=== PATIENT | male | born 1945 | race Caucasian/White ===

== ENCOUNTER 2024-06-24 13:28 | Outpatient (CLI) | payer MEDICARE, SELFPAY ==
--- NOTE | 2024-06-24 14:51 | ECG_ITS ---
Test Date: 2024-06-24 15:06:50 Measurements Intervals [place] Rate: 85 P: 55 AR: 153 QRS: -10 QRSD: 88 T: 41 QT: 349 QTc: 416 Interpretive Statements SINUS RHYTHM CONSIDER ANTERIOR INFARCT, AGE INDETERMINATE PEAKED T WAVES- CONSIDER HYPERKALEMIA BASELINE ARTIFACT- I, II, III, AVR, AVL ,AVF, V1-V6 ABNORMAL ECG No previous ECG available for comparison Electronically Signed On 06-24-2024 16:40:49 CDT by Tomas Reynoso D.O.
[2024-06-24 15:25] LABS: Anion Gap 6 mmol/L (4-12); Blood Urea Nitrogen 37 mg/dL (9-20); Calcium 9.9 mg/dL (8.4-10.2); Carbon Dioxide 29 mmol/L (22-30); Chloride 100 mmol/L (98-107); Estimated Glomerular Filt Rate 32; Glucose 111 mg/dL (65-110); Potassium 4.7 mmol/L (3.4-5.0); Sodium 135 mmol/L (137-145)
== END 2024-06-24 13:29 | disposition home or self-care (01) ==
PROVIDERS: Anesthesiology; PCP Physician Assistant; Visit Provider Urology
DX: Z01.818 Encounter for other preprocedural examination (principal); E11.9 Type 2 diabetes mellitus without complications; I10 Essential (primary) hypertension
CPT/HCPCS: 36415; 80048; 93005

== ENCOUNTER 2024-06-25 00:21 | Day surgery (SDC) | payer MEDICARE, BC, SELFPAY ==
--- NOTE | 2024-06-24 13:36 | PC.NURSE ---
Report to the Outpatient Waiting Room, entrance under the green pavilion located off [facility], at time ___8:30AM____ on date __06/25/24 . Planned Procedure Time: ____10:30AM____.? Time changes happen often and if your time is changed the preop area will call you the afternoon before. - You and your visitor will be asked to self-screen and do not enter if you have any COVID symptoms. Please call surgeon if you need to reschedule. - A mask is optional within the hospital at this time. Patients may have clear liquids (water, carbonated beverages, clear teas, apple juice) until 3 hours prior to surgery with a maximum of 20 ounces. - No food from midnight until time of surgery and no smoking. Take only the following medications with a SIP of water on the morning of surgery: ____AMLODIPINE, PREDNISONE, CIPRO(ANTIBIOTIC). MAY TAKE HYDROCODONE NEEDED FOR PAIN DO NOT STOP ANY OF YOUR OTHER PRESCRIPTION MEDICATIONS PRIOR TO SURGERY EXCEPT THE FOLLOWING Medications to discontinue per physician ___HOLD ALL VITAMINS/SUPPLEMENTS STARTING NOW(06/24/24) PER ANESTHESIA_ Please no make-up, nail tongan, hairspray, perfume, deodorant, or body powder the day of surgery.? No jewelry (including any body piercings) or valuables the day of surgery, leave them at home.? Please take a shower or bath the night before, or the morning of, surgery with an antibacterial soap.? Wear comfortable, loose fitting clothing.? - Jewelry must be removed prior to entering the operating room.? Rings and piercings that are not removed may be cut off. - The hospital will not accept responsibility for valuables.? - Please leave all valuables, including medications, at home the day of surgery. If you are going home after surgery, a licensed stud driver must drive you home.? - NO public transportation without another adult if you receive anesthesia. - We recommend that an adult stay with you for 24 hours following discharge. - We also recommend that you do not drive, make important decision, drink alcoholic beverages, or take any drugs that were not prescribed by your health care provider for at least 24 hours after your discharge time. Follow any additional instructions given to you from your surgeon. Telephone instructions given to ___PATIENT and asked if any additional questions and then verbalized understanding. Patient advised to call surgeon office or pre surgery nurse liaison [phone] if any additional questions.
[2024-06-24 14:10] VITALS: BP 109/65; PULSE 85; RESP 16; TEMP 36.9; O2SAT 97; BMI 24.7
--- NOTE | 2024-06-24 14:36 | PC.NURSE ---
Report to the Outpatient Waiting Room, entrance under the green pavilion located off [facility], at time __8:30AM on date __06/25/24 . Planned Procedure Time: ___10:30AM .? Time changes happen often and if your time is changed the preop area will call you the afternoon before. - You and your visitor will be asked to self-screen and do not enter if you have any COVID symptoms. Please call surgeon if you need to reschedule. - A mask is optional within the hospital at this time. Patients may have clear liquids (water, carbonated beverages, clear teas, apple juice) until 3 hours prior to surgery with a maximum of 20 ounces. - No food from midnight until time of surgery and no smoking. Take only the following medications with a SIP of water on the morning of surgery: ___AMLODIPINE, PREDNISONE, CIPRO(ANTIBIOTIC). MAY TAKE HYDROCODONE NEEDED FOR PAIN. DO NOT STOP ANY OF YOUR OTHER PRESCRIPTION MEDICATIONS PRIOR TO SURGERY EXCEPT THE FOLLOWING Medications to discontinue per physician ___HOLD ALL VITAMINS/SUPPLEMENTS 3 DAYS PRE-OP PER ANESTHESIA- STARTING NOW_ Please no make-up, nail scottish, hairspray, perfume, deodorant, or body powder the day of surgery.? No jewelry (including any body piercings) or valuables the day of surgery, leave them at home.? Please take a shower or bath the night before, or the morning of, surgery with an antibacterial soap.? Wear comfortable, loose fitting clothing.? - Jewelry must be removed prior to entering the operating room.? Rings and piercings that are not removed may be cut off. - The hospital will not accept responsibility for valuables.? - Please leave all valuables, including medications, at home the day of surgery. If you are going home after surgery, a licensed escort car driver must drive you home.? - NO public transportation without another adult if you receive anesthesia. - We recommend that an adult stay with you for 24 hours following discharge. - We also recommend that you do not drive, make important decision, drink alcoholic beverages, or take any drugs that were not prescribed by your health care provider for at least 24 hours after your discharge time. . Follow any additional instructions given to you from your surgeon. Telephone instructions given to ____PATIENT & WIFE and asked if any additional questions and then verbalized understanding. Patient advised to call surgeon office or pre surgery nurse liaison [phone] if any additional questions.
[2024-06-25] VITALS (15 sets, daily range): BP systolic 117–204; BP diastolic 54–93; PULSE 75–95; RESP 12–26; TEMP 36.2–36.9; O2SAT 93–100; BMI 24.5
--- NOTE | ~2024-06-25 | XR_ITS ---
EXAMINATION: XR retrograde pyelo w/stent RT DATE: 06/25/2024 10:35 CDT INDICATION: RIGHT SIDE STENT PLACEMENT . TECHNIQUE: 5 fluoroscopic images of the right abdomen were obtained during right retrograde pyelograp hy with stent placement, performed by Gerard Palma MD. I was not present during the procedu re. Fluoroscopy exposure time was 19.1 seconds. Air Kerma 5.19 mGy. DAP [id number] mGym2. COMPARISON: None FINDINGS/IMPRESSION: Fluoroscopic documentation of right retrograde pyelography with stent placement. Please refer to the operative note for complete procedural details . Reviewed, dictated and finalized at location K.
--- NOTE | 2024-06-25 08:41 | WPDHPUPDATE1 ---
History and Physical Update Update Date/Time: 06/25/24 08:41 History and Physical has been reviewed, including an updated exam of the patient. There are NO changes in the patient's condition. Risks, benefits, and alternatives have been discussed and questions answered. Patient agrees to proceed with procedure.
[2024-06-25 09:04] LABS: Glucose Point of Care 228 mg/dl (65-105)
[2024-06-25] MEDS: LACTATED RINGERS 1,000 ML 30 ML IV CONT ×2 (09:44→11:24)
--- NOTE | 2024-06-25 09:53 | WPDANESEPPF ---
Anes - Initial Pre Proc Eval Procedure: Operation Date: 06/25/24 10:30 Proposed Procedures p Cystoscopy, Holmium Laser of Bladder Stone, Possible Right Ureteroscopy with Holmium Laser, Possible Right Stent Placement - Gerard Palma MD Date/Time: 06/25/24 09:53 Surgeon: Gerard Palma MD Pre Op Diagnosis: Bladder Stone, Rt Kidney Stone Patient Data Age: 79 Gender: M Height: 1.59 m Weight: 62 kg Last Vital Signs Temp 97.1 F L 06/25/24 08:40 Pulse 83 06/25/24 08:40 Resp 18 06/25/24 08:40 BP 153/54 H 06/25/24 08:40 Pulse Ox 100 06/25/24 08:40 O2 Del Method Room Air 06/25/24 08:40 Allergies Allergy/AdvReac Type Severity Reaction Status Date / Time lisinopril AdvReac Intermediate Cough Verified 06/25/24 09:14 methotrexate AdvReac MOUTH SORES Verified 06/25/24 09:14 Home Medications Medication Instructions Recorded Confirmed Type amlodipine 10 mg tablet 10 mg PO DAILY 07/13/23 06/24/24 History atorvastatin 10 mg tablet 10 mg PO DAILY 07/13/23 06/24/24 History cholecalciferol (vitamin D3) 75 75 mcg PO DAILY 07/13/23 06/24/24 History mcg (3,000 unit) tablet fluticasone propionate 50 1 spray intranasal DAILY PRN Nasal 07/13/23 06/24/24 History mcg/actuation nasal Congestion spray,suspension (Flonase Allergy Relief) folic acid 1 mg tablet 1 mg PO DAILY #90 tabs 07/13/23 06/24/24 Rx insulin glargine 100 unit/mL (3 10 unit subcut QPM 07/13/23 06/24/24 History mL) subcutaneous pen (Lantus Solostar U-100 Insulin) lidocaine 5 % topical patch 1 patch topical DAILY 07/13/23 06/24/24 History losartan 100 mg tablet (Cozaar) 100 mg PO DAILY 07/13/23 06/24/24 History omega 8-cxn-oep-fish oil 100 1 cap PO DAILY 07/13/23 06/24/24 History mg-160 mg-1,000 mg capsule (Fish Oil) celecoxib 200 mg capsule 200 mg PO DAILY 06/24/24 06/24/24 History ciprofloxacin HCl 500 mg tablet 500 mg PO BID 06/24/24 06/25/24 History hydrocodone 5 mg-acetaminophen 325 1 tablet PO Q6-8H PRN Pain 06/24/24 06/24/24 History mg tablet prednisone 1 mg tablet See Rx Instructions .Route .COMPLEX 06/24/24 06/24/24 History prednisone 5 mg tablet See Rx Instructions .Route .COMPLEX 06/24/24 06/24/24 History ropinirole 0.5 mg tablet 0.5 mg PO HS 06/24/24 06/24/24 History tamsulosin 0.4 mg capsule 0.4 mg PO HS 06/24/24 06/24/24 History tizanidine 2 mg tablet 2 mg PO DAILY PRN Muscle Spasm 06/24/24 06/24/24 History Laboratory Tests 06/25/24 09:01 POC Capillary Glucose 228 H mg/dl (65-105) Patient hx anesthesia problems: none Family hx anesthesia problems: none Results Review: All pre-operative results and documents have been reviewed as part of the pre-operative evaluation. FOR[facility]LY [facility] Past Medical History Medical History BPH (benign prostatic hyperplasia) Coronary artery disease Diabetes Generalized osteoarthritis of multiple sites GERD (gastroesophageal reflux disease) Hypertension Kidney disease Osteoporosis Polymyalgia rheumatica Seronegative rheumatoid arthritis of both hands Social History Social History Smoking status: Never smoker Alcohol intake: current Drinks per week: 2 Living arrangements: with family Additional living arrangements comments: Spiritual care concerns: No Anes - Eval Final PreProcedure Day of Procedure 06/25/24 09:53 Patient weight: normal Heart: regular rate and rhythm Lungs: clear to auscultation Airway: Mallampati scale class II and special considerations (Missing upper R incisor, teeth in poor condition. ) Neurological: alert and oriented Last oral intake: >/= 8 hours ASA classification: III Emergent: no Anesthetic plan: proceed Anesthesia type and monitoring: general GIVS and standard monitoring Results Review: All pre-operative results and documents have been reviewed as part of the pre-ope
[2024-06-25] MEDS: ceFAZolin 2 GM/D5W 50 ML 2 GM/50 ML BAG IVPB (10:09)
--- NOTE | 2024-06-25 11:20 | P.OP_ITS ---
Procedure Note - Detailed Date of Procedure 06/25/24 Pre-op Diagnosis Bladder Stone, Rt Kidney Stone Post-op Diagnosis Other (Large bladder stone 2.5 cm, 1.6 cm renal stone, urethral narrowing) Procedure Performed Urethral dilation with male sounds to 24 Icelandic, cystoscopy, holmium laser of bladder stone, right retrograde pyelogram, right ureteroscopy, holmium laser of right renal stone, right ureteral stent placement 4.8 Icelandic contour Surgeon Gerard Palma MD Anesthesia General Findings Large bladder stone 2.5 cm, 1.6 cm right renal stone lower pole, urethral narrowing Description of Procedure Patient is taken the operative suite correctly identified. Once anesthesia was obtained was placed in dorsal lithotomy position and prepped and draped usual sterile fashion. Twenty-two Icelandic scope would not pass into the urethra. I then used male sounds to dilate the urethra up to 24 Icelandic. Twenty-two Icelandic scope was then passed. There were no discrete strictures other than just some tight urethra. Upon entering the bladder the patient has a large bladder stone at measuring at least 2.5 cm. Using a 500 micron fiber we lasered the stone retrieved all the pieces. Right retrograde pyelogram was then performed. Sensor wire was placed into the right kidney. Ureteral access sheath was placed. Mini flexible ureteral scope was inserted in the kidney. Inspected the entire the kidney. The only finding was a large stone in the right lower pole. It was difficult to manipulate the scope but I was able to place 200 micron fiber in dust the stone. These fragments should be passable. He has another calcification noted on this screen but this appears to be outside the kidney. 4.8 Icelandic contour stent was then placed with the proximal end coiled in the renal pelvis the distal in the bladder. Bladder was drained. 2% viscous lidoca ine was inserted into the urethra patient is taken recovery stable condition. He will follow-up in a week's time for stent removal. This completes dictation. Please send a copy of op note to my office Estimated Blood Loss 0 Drains Yes Packing No Pathology Yes Complications No immediate complications Condition Stable Disposition PACU
[2024-06-25] MEDS: LABETALOL HCL INJ 100 MG/20 ML VIAL IV PUSH ×2 (12:05→12:26)
[2024-06-25] MEDS: fentaNYL CITRATE INJ (*CRX) 100 MCG/2 ML VIAL 25 MCG IV PUSH ×4 (12:15→12:34)
[2024-06-25] MEDS: hydrALAZINE HCL 20 MG/ML VIAL 5 MG IV PUSH (12:49)
[2024-06-25 13:18] LABS: Glucose Point of Care 261 mg/dl (65-105)
== END 2024-06-25 14:07 | disposition home or self-care (01) ==
PROVIDERS: PCP Physician Assistant; Visit Provider Urology
PROC: (CPT 52352; principal; 2024-06-25 10:30)
DX: N20.0 Calculus of kidney (principal); N21.0 Calculus in bladder; I10 Essential (primary) hypertension; E11.9 Type 2 diabetes mellitus without complications; N40.0 Benign prostatic hyperplasia without lower urinary tract symptoms; I25.10 Atherosclerotic heart disease of native coronary artery without angina pectoris; K21.9 Gastro-esophageal reflux disease without esophagitis; N28.9 Disorder of kidney and ureter, unspecified; M81.0 Age-related osteoporosis without current pathological fracture; M06.842 Other specified rheumatoid arthritis, left hand; M06.841 Other specified rheumatoid arthritis, right hand; Z79.52 Long term (current) use of systemic steroids; Z79.891 Long term (current) use of opiate analgesic; Z79.4 Long term (current) use of insulin
CPT/HCPCS: 52356; 74420; 82365; 82948; 88300; C1758; C1769; C1894; C2617; J0360; J0690; J1100; J2003; J2405; J2704; J3010; J7120; Q9966